=== PATIENT | male | born 1935 ===

== ENCOUNTER → 2016-09-28 | Outpatient (CLI) | payer OTHER | DX: Z01.810 Encounter for preprocedural cardiovascular examination (principal); I20.9 Angina pectoris, unspecified; I25.119 Atherosclerotic heart disease of native coronary artery with unspecified angina pectoris; I70.213 Atherosclerosis of native arteries of extremities with intermittent claudication, bilateral legs; I73.9 Peripheral vascular disease, unspecified | CPT/HCPCS: 93925 ==